=== PATIENT | male | born 1960 | race Caucasian/White ===

== ENCOUNTER 2017-04-21 11:48 | Emergency (ER) | payer OTHER ==
[~2017-04-21] VITALS: Ht 182.9 cm; Wt 86.8 kg
[~2017-04-21 11:48] MED LIST: TRAM50TA PO
[2017-04-21 11:50] VITALS: BP 135/90; PULSE 116; RESP 14; TEMP 98.8; O2SAT 98
[2017-04-21 12:30] LABS: AUTOMATED NEUTROPHIL # 7.1 TH/MM3 (1.8-7.7); BASOPHIL # 0.1 TH/MM3 (0-0.2); BASOPHIL % 0.6 % (0.0-2.0); EOSINOPHIL # 0.2 TH/MM3 (0-0.4); EOSINOPHIL % 1.5 % (0.0-4.0); HEMATOCRIT 40.2 % (39.0-51.0); HEMOGLOBIN 13.8 GM/DL (13.0-17.0); LYMPH % 19.9 % (9.0-44.0); LYMPHOCYTE # 2.1 TH/MM3 (1.0-4.8); MEAN CELL VOLUME 87.6 FL (80.0-100.0); MEAN CORPUSCULAR HEMOGLOBIN 30.1 PG (27.0-34.0); MEAN CORPUSCULAR HGB CONC 34.4 % (32.0-36.0); MEAN PLATELET VOLUME 8.1 FL (7.0-11.0); MONO % 10.5 % (0.0-8.0); MONOCYTE # 1.1 TH/MM3 (0-0.9); NEUT % 67.5 % (16.0-70.0); PLATELET COUNT 245 TH/MM3 (150-450); RED BLOOD COUNT 4.59 MIL/MM3 (4.50-5.90); RED CELL DISTRIBUTION WIDTH 13.9 % (11.6-17.2); WHITE BLOOD COUNT 10.6 TH/MM3 (4.0-11.0)
[2017-04-21 12:35] LABS: BILIRUBIN, URINE NEG (NEG); BLOOD, URINE NEG (NEG); GLUCOSE,URINE NEG (NEG); KETONE, URINE NEG (NEG); NITRITE,URINE NEG (NEG); PH, URINE 5.5 (5.0-8.5); URINE COLOR YELLOW (YELLW/STRAW); URINE LEUKOCYTE ESTERASE NEG (NEG)
[2017-04-21 12:43] LABS: ALBUMIN 3.6 GM/DL (3.4-5.0); ALT (GPT) 22 U/L (12-78); AST (GOT) 14 U/L (15-37); BICARBONATE 27.3 MEQ/L (21.0-32.0); BLOOD UREA NITROGEN 11 MG/DL (7-18); CALCIUM 8.6 MG/DL (8.5-10.1); CHLORIDE 96 MEQ/L (98-107); CREATININE 1.38 MG/DL (0.60-1.30); GLOMERULAR FILTRATION RATE 53 ML/MIN (>89); GLUCOSE,RANDOM 136 MG/DL (74-106); SODIUM (NA) 131 MEQ/L (136-145)
[2017-04-21 12:44] LABS: PROTHROMBIN TIME - PATIENT 10.4 SEC (9.8-11.6)
[2017-04-21 12:45] LABS: ALKALINE PHOSPHATASE 57 U/L (45-117); TOTAL BILIRUBIN ADULT 1.2 MG/DL (0.2-1.0); TOTAL PROTEIN 8.2 GM/DL (6.4-8.2)
--- NOTE | 2017-04-21 12:55 | PD ---
HPI Chief Complaint: Back/ Neck Pain or Injury Time Seen by Provider: 12:51 Travel History International Travel<30 days: No Contact w/Intl Traveler<30days: No Traveled to known affect area: No History of Present Illness HPI 57-year-old male presents to the emergency Department with complaint of low back pain, worse on the left than the right, after his 70-75 pound autistic son bounced up and down on his lower back yesterday 3 times. He is also complaining of left rib cage pain. Denies chest pain, shortness of breath, abdominal pain. Says the pain does radiate to his abdomen. His abdomen is not painful. Denies encopresis, incontinence, saddle anesthesias. Denies paresthesias, loss of sensation, decreased range of motion, decreased strength to bilateral lower extremities. Is ambulatory. Denies fever, vomiting. Took an old prescription of tramadol for symptom management. Has tried icy hot and heating pad. Rates pain 8/10. Describes it as an aching sensation. Worse with movement. No known relieving factors. Dr. Maya is primary care provider. Denies significant past medical history. No known allergies. Has no other medical complaints. No other modifying factors or associated signs and symptoms. PFSH Past Medical History Tetanus Vaccination: < 5 Years Social History Alcohol Use: No Tobacco Use: No Substance Use: No Allergies-Medications (Allergen,Severity, Reaction): Coded Allergies: No Known Allergies (Unverified Adverse Reaction, Unknown, 04/14/17) Reported Meds & Prescriptions Reported Meds & Active Scripts Active [place]ney (Hydrocodone-Acetaminophen) 5 Mg-325 Mg Tab 1 Tab PO Q4H PRN Robaxin (Methocarbamol) 500 Mg Tab 500 Mg PO QID PRN Ibuprofen 800 Mg Tab 800 Mg PO Q6HR PRN Tramadol (Tramadol HCl) 50 Mg Tab 50 Mg PO Q8H PRN Review of Systems Except as stated in HPI: all other systems reviewed are Neg Physical Exam Narrative GENERAL: Well-nourished, well-developed male patient, in no acute distress; afebrile, nontoxic-appearing SKIN: Warm and dry. HEAD: Atraumatic. Normocephalic. EYES: Pupils equal and round. No scleral icterus. No injection or drainage. ENT: Mucosa pink and moist. Airway patent. NECK: Trachea midline. CHEST: Producible tenderness to the left lateral rib cage at approximately the ninth to 11th ribs; without deformity or crepitance. No retractions or use of accessory muscles. CARDIOVASCULAR: Regular rate and rhythm. No murmur appreciated. RESPIRATORY: No accessory muscle use. Breath sounds clear and equal bilaterally. No retractions or tachypnea. GASTROINTESTINAL: Abdomen soft, non-tender, nondistended. Positive bowel sounds. No hepato-splenomegaly, or palpable masses. No guarding. MUSCULOSKELETAL: Bilateral lower extremities supple and non-tense with 2+ pedal pulses and sensory intact; with full range of motion and 5/5 strength. 2 + DTRs bilaterally. Active dorsiflexion and extension of bilateral feet. Bilateral straight leg raise is positive for low back pain. Ambulatory in room with normal gait. Sitting up in bed at 90. No obvious deformities. No clubbing. No cyanosis. No edema. BACK: Midline point tenderness on palpation of the lumbar spine. No midline tenderness on palpation of the thoracic spine. Tenderness on palpation of bilateral lumbar paraspinal and iliosacral area. No obvious deformities. NEUROLOGICAL: Awake and alert. Oriented 3. No obvious cranial nerve deficits. Motor grossly within normal limits. Normal speech. Moves all extremities. 5/5 strength to all extremities. Sensory intact. PSYCHIATRIC: Appropriate mood and affect; insight and judgment normal. Data Data Last Documented VS Vital Signs Date Time Temp Pulse Resp B/P (MAP) Pulse Ox O2 Delivery O2 Flow Rate FiO2 04/21/17 11:50 98.8 116 14 135/90 (105) 98 Orders Orders Complete Blood Count With Diff (04/21/17 11:59) Comprehensive Metabolic Panel (04/21/17 11:59) Act Partial Throm Time (Ptt) (04/21/17 11:59) Prothrombin Time / Inr (Pt) (04/21/17 11:59) Urinalysis - C+S If Indicated (04/21/17 11:59) Ketorolac Inj (Toradol Inj) (04/21/17 13:15) Orphenadrine Inj (Norflex Inj) (04/21/17 13:15) Acetamin-Hydrocod 325-5 Mg (Pinckney 5-325 (04/21/17 13:15) Ct Lumb Spine W/O Contrast (04/21/17 ) Ribs, Uni (W/Exp Cxr-Min 3vw) (04/21/17 ) Labs Laboratory Tests Test 04/21/17 12:10 White Blood Count 10.6 TH/MM3 Red Blood Count 4.59 MIL/MM3 Hemoglobin 13.8 GM/DL Hematocrit 40.2 % Mean Corpuscular Volume 87.6 FL Mean Corpuscular Hemoglobin 30.1 PG Mean Corpuscular Hemoglobin Concent 34.4 % Red Cell Distribution Width 13.9 % Platelet Count 245 TH/MM3 Mean Platelet Volume 8.1 FL Neutrophils (%) (Auto) 67.5 % Lymphocytes (%) (Auto) 19.9 % Monocytes (%) (Auto) 10.5 % Eosinophils (%) (Auto) 1.5 % Basophils (%) (Auto) 0.6 % Neutrophils # (Auto) 7.1 TH/MM3 Lymphocytes # (Auto) 2.1 TH/MM3 Monocytes # (Auto) 1.1 TH/MM3 Eosinophils # (Auto) 0.2 TH/MM3 Basophils # (Auto) 0.1 TH/MM3 CBC Comment DIFF FINAL Differential Comment Prothrombin Time 10.4 SEC Prothromb Time International Ratio 1.0 RATIO Activated Partial Thromboplast Time 31.4 SEC Urine Color YELLOW Urine Turbidity CLEAR Urine pH 5.5 Urine Specific [place] 1.014 Urine Protein NEG mg/dL Urine Glucose (UA) NEG mg/dL Urine Ketones NEG mg/dL Urine Occult Blood NEG Urine Nitrite NEG Urine Bilirubin NEG Urine Urobilinogen LESS THAN 2.0 MG/DL Urine Leukocyte Esterase NEG Urine RBC LESS THAN 1 /hpf Urine WBC 1 /hpf Microscopic Urinalysis Comment CULT NOT INDICATED Blood Urea Nitrogen 11 MG/DL Creatinine 1.38 MG/DL Random Glucose 136 MG/DL Total Protein 8.2 GM/DL Albumin 3.6 GM/DL Calcium Level 8.6 MG/DL Alkaline Phosphatase 57 U/L Aspartate Amino Transf (AST/SGOT) 14 U/L Alanine Aminotransferase (ALT/SGPT) 22 U/L Total Bilirubin 1.2 MG/DL Sodium Level 131 MEQ/L Potassium Level 4.2 MEQ/L Chloride Level 96 MEQ/L Carbon Dioxide Level 27.3 MEQ/L Anion Gap 8 MEQ/L Estimat Glomerular Filtration Rate 53 ML/MIN MDM Medical Decision Making Medical Screen Exam Complete: Yes Emergency Medical Condition: Yes Medical Record Reviewed: Yes Differential Diagnosis Low back strain, no back pain, lumbar fracture, herniated disc, rib contusion, rib fracture Narrative Course 57-year-old male with low back injury and left rib cage pain. He has no reproducible abdominal tenderness on exam. His pain does radiate to his abdomen , but he denies abdominal pain. Denies encopresis, incontinence, saddle anesthesia. Patient is able to bring the room with a guarded gait. He has midline tenderness on palpation of the lumbar spine. Reproducible tenderness to the left lateral lower rib cage. No acute distress. No retractions or tachypnea. CBC, CMP, coags, urinalysis ordered in triage. CT lumbar spine, left rib with expiratory chest x-ray, Toradol, Norflex, Pinckney ordered. 1253: CBC unremarkable. Sodium 131. Creatinine 1.38. Otherwise, CMP unremarkable. Coags unremarkable. Urine analysis unremarkable. 1622: CT lumbar spine and left rib x-ray chest x-ray concludes: Ribs X-Ray 04/21/17 0000 Signed Impressions: Service Date/Time: Friday, April 21, 2017 14:19 - CONCLUSION: 1. No acute findings. Clyde Fu MD Lumbar Spine CT 04/21/17 0000 Signed Impressions: Service Date/Time: Friday, April 21, 2017 13:50 - CONCLUSION: 1. No acute fracture. 2. Bilateral pars defects at L5 with mild grade 1 anterolisthesis of L5 on S1. There is also mild retrolisthesis of L4 on L5. 3. Multilevel degenerative spondylosis of the lumbar spine most prominently at L3-S1, as above. Reuben Lewis MD A copy of the CT and x-ray reports were provided to the patient. Norflex, ibuprofen, and a short course of [place] prescribed for home. Instructed patient to follow up with primary care provider. Patient verbalizes understanding and agreement with treatment plan. Patient is medically cleared and stable for discharge. Discussed reasons to return to the emergency department. Patient agrees with treatment plan. The patients vital signs are stable and the patient is stable for outpatient follow-up and treatment. Patient discharged home, stable and in no acute distress. Diagnosis Primary Impression: Low back pain Qualified Codes: M54.5 - Low back pain Additional Impressions: Low back strain Qualified Codes: S39.012A - Strain of muscle, fascia and tendon of lower back , initial encounter Rib pain on left side Referrals: Primary Care Physician Patient Instructions: Acute Low Back Pain (ED), General Instructions, Low Back Strain (ED), Rib Contusion (ED) Additional Instructions: Tylenol or ibuprofen as directed and as needed for pain Robaxin as prescribed and as needed for muscle spasms Heating pad and/or ice to affected area to reduce pain Avoid aggravating activities; increase activity as tolerated Follow-up with primary care provider Return to emergency department immediately with worsening of symptoms Med/Other Pt SpecificInfo: Prescription(s) given Scripts Hydrocodone-Acetaminophen (Pinckney) 5 Mg-325 Mg Tab 1 TAB PO Q4H Y for PAIN, #8 TAB 0 Refills Prov: Ana Wayne 04/21/17 Methocarbamol (Robaxin) 500 Mg Tab 500 MG PO QID Y for MUSCLE SPASM, #30 TAB 0 Refills Prov: Ana Wayne 04/21/17 Ibuprofen (Ibuprofen) 800 Mg Tab 800 MG PO Q6HR Y for PAIN, #30 TAB 0 Refills Prov: Ana Wayne 04/21/17 Disposition: 01 DISCHARGE HOME Condition: Stable Ana Wayne Apr 21, 2017 12:55
[2017-04-21] MEDS ORDERED: ORPHENADRINE INJ 60 MG/2 ML AMP IM ONE (13:15)
[2017-04-21] MEDS ORDERED: KETOROLAC TROMETHAMINE 60 MG/2 ML (IM) VIAL IM ONE (13:15)
[2017-04-21] MEDS ORDERED: ACETAMINOPHEN/HYDROcodone 325 MG/5 MG TAB PO ONE (13:15)
--- NOTE | 2017-04-21 14:49 | RADRPT ---
EXAM DATE/TIME: 04/21/2017 13:50 [facility] COMPARISON: No previous studies available for comparison. INDICATIONS : Low back pain, his son jumped on his back yesterday. RADIATION DOSE: 34.09 CTDIvol (mGy) MEDICAL HISTORY : None SURGICAL HISTORY : None. ENCOUNTER: Initial ACUITY: 1 day PAIN SCALE: 8/10 LOCATION: Lumbar spine TECHNIQUE: Volumetric scanning of the lumbar spine was performed. Multiplanar reconstructions in the sagittal, coronal and oblique axial planes were performed. Using automated exposure control and adjustment of the mA and/or kV according to patient size, radiation dose was kept as low as reasonably achievable t o obtain optimal diagnostic quality images. DICOM format image data is available electronically for review and comparison. FINDINGS: VERTEBRAE: Most caudal which will body is labeled L5. Vertebral body heights are intact without evidence for acu te bony fracture. There are bilateral pars defects noted at L5. ALIGNMENT: Mild grade 1, less than 5 mm, anterolisthesis of L5 on S1. Mild grade 1, less than 5 mm, posterolisth esis of L4 on L5. Slight levoscoliosis of the lower lumbar spine centered at L3-4. Paraspinal soft tissues: Visualized portions of the kidneys, adrenal glands, and paraspinal soft tissues are unremarkable. Abd ominal aorta is non-aneurysmal. No retroperitoneal adenopathy. T12-L1: The thecal sac has a normal diameter. No evidence of disc bulge or protrusion. The neural foramina are patent bilaterally. L1-L2: Minimal diffuse disc bulge with mild bilateral facet arthropathy. No significant central canal or janice ral foraminal stenosis. L2-L3: Mild diffuse disc bulge and mild bilateral facet arthropathy. No significant central canal or neurofo raminal stenosis. L3-L4: Disc space loss with diffuse disc bulge and primarily anterolateral osteophytes. Mild bilateral facet arthropathy and ligamentum flavum hypertrophy. Effacement of the anterior thecal sac with central ca nal measuring approximately 12 mm. Mild caudal left neural foraminal narrowing. L4-L5: Diffuse disc bulge, ligamentum flavum hypertrophy and a prominent collateral facet arthropathy. Effac ement of the anterior thecal sac with central canal measuring approximately 12 mm. Moderate left neur al foraminal narrowing. L5-S1: Diffuse disc bulge and mild posterior osteophytes. Pigmented flavum hypertrophy and prominent collate ral facet arthropathy. Central canal is patent. Moderate left and severe right neural foraminal narro wing. CONCLUSION: 1. No acute fracture. 2. Bilateral pars defects at L5 with mild grade 1 anterolisthesis of L5 on S1. There is also mild ret rolisthesis of L4 on L5. 3. Multilevel degenerative spondylosis of the lumbar spine most prominently at L3-S1, as above. Reuben Lewis MD on April 21, 2017 at 14:31 Board Certified Radiologist. This report was verified electronically.
[2017-04-21] MEDS ORDERED: NORC5TAB PO (14:59)
[2017-04-21] MEDS ORDERED: ROBA500T PO (14:59)
[2017-04-21] MEDS ORDERED: IBUP1TAB7 PO (14:59)
--- NOTE | 2017-04-21 15:06 | RADRPT ---
EXAM DATE/TIME: 04/21/2017 14:19 [facility] COMPARISON: No previous studies available for comparison. INDICATIONS : Son jumped on him yesterday MEDICAL HISTORY : None. SURGICAL HISTORY : left shoulder surgery ENCOUNTER: Initial ACUITY: 2 days PAIN SCORE: 8/10 LOCATION: Left ribs FINDINGS: Multiple views of the left ribs were performed. There is no evidence of displaced fracture. No dest ructive lesions or areas of periosteal thickening are seen. Expiratory view of the chest is negative for pneumothorax. The mediastinal structures are midline. CONCLUSION: 1. No acute findings. Clyde Fu MD on April 21, 2017 at 15:02 Board Certified Radiologist. This report was verified electronically.
== END 2017-04-21 16:37 | disposition home or self-care (01) ==
LOC: NEPD 11:48
DX: S39.012A Strain of muscle, fascia and tendon of lower back, initial encounter (principal); W51.XXXA Accidental striking against or bumped into by another person, initial encounter; R07.81 Pleurodynia
CPT/HCPCS: 71101; 72131; 80053; 81001; 85025; 85610; 85730; 96372; 99285; J1885; J2360